=== PATIENT | male | born 1985 | race African-American/Black ===

== ENCOUNTER 2024-05-04 11:13 | Emergency (ER) | payer OTHER, SELFPAY ==
--- NOTE | 2024-05-04 | ECG_ITS ---
Test Reason : CHEST PAIN Blood Pressure : / mmHG Vent. Rate : 063 BPM Atrial Rate : 063 BPM P-R Int : 160 ms QRS Dur : 106 ms QT Int : 426 ms P-R-T Axes : 029 018 -05 degrees QTc Int : 435 ms Normal sinus rhythm Minimal voltage criteria for LVH, may be normal variant ( R in aVL ) T wave abnormality, consider inferior ischemia Abnormal ECG No previous ECGs available Referred By: Pam Whitney Electronically Signed By:DINH GARCÍA
--- NOTE | ~2024-05-04 | XR_ITS ---
EXAMINATION: XR CHEST CLINICAL INFORMATION: Cough. COMPARISON: None available. TECHNIQUE: 2 views of the chest were obtained. FINDINGS: The heart is normal in size. Both lungs are clear. No pleural effusion. No pneumothorax. No acute osseous abnormality. XR/XR chest 2V IMPRESSION: No acute cardiopulmonary disease. Electronically signed by: Daniel Singletary DO 05/04/2024 02:44 PM EDT
[2024-05-04 11:29] VITALS: BP 161/89; PULSE 65; RESP 18; TEMP 36.2; O2SAT 97; BMI 37.0
[2024-05-04 13:16] LABS: IDNOW Serial# 08D9AD1C; Strep A Nucleic Acid Negative (Negative)
[2024-05-04 13:17] LABS: Influenza A PCR NEGATIVE (Negative); Influenza B PCR NEGATIVE (Negative); Resp Syncy Virus RNA Qual PCR NEGATIVE (Negative); SARS COV2 PCR INHOUSE NEGATIVE (Negative)
[2024-05-04 14:49] VITALS: BP 142/90; PULSE 51; RESP 16; TEMP 36.4; O2SAT 97
--- NOTE | 2024-05-04 15:36 | ED.URI ---
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 Patient reports that his partner became ill with similar symptoms. He denies any known fevers. He endorses headache and congestion. He has been taking [id number] cold medications without any relief. He does report chest pain which only occurs with cough. Denies any shortness for breath. He has been using his inhaler at home which has provided him with some relief. No other complaints or concerns at this time. MD elicited complaint: cough, sore throat and nasal congestion Onset (ago): day(s) Able to tolerate fluids by mouth: Yes Exacerbating factors: nothing Relieving factors: nothing Context: sick contacts Associated symptoms: chills, headache, rhinorrhea, nasal congestion and sore throat Related Data Previous Rx's ?Medication ?Instructions ?Recorded azithromycin 250 mg tablet See Rx Instructions PO .COMPLEX #6 05/04/24 tabs benzonatate 100 mg capsule 100 mg PO TID PRN cough #14 caps 05/04/24 Allergies Allergy/AdvReac Type Severity Reaction Status Date / Time No Known Allergies Allergy Verified 05/04/24 11:30 Review of Systems Review of Systems: Yes all other systems are reviewed and are negative Constitutional: Constitutional: Reports as per [facility] Past Medical History Attestation statement: The following information was validated with the patient. Social History Social History Advance Directives: No Advance Directives Information Provided: Yes Do you have a plan to hurt others: No Plan Physical Exam Vital Signs: Vital Signs: Last Vital Signs Temp 97.5 F 05/04/24 14:49 Pulse 51 05/04/24 14:49 Resp 16 05/04/24 14:49 BP 142/90 H 05/04/24 14:49 Pulse Ox 97 05/04/24 14:49 O2 Del Method Room Air 05/04/24 14:49 BMI result Body Mass Index 37.0 Const: General: cooperative, comfortable and no acute distress Orientation/consciousness: patient oriented x3 Limitations: no limitations HEENT: Other: Posterior oropharynx is erythematous, no tonsillar hypertrophy or exudates. Uvula is midline. No trismus, drooling or dysphonia. Head: Yes normal to inspection, Yes normocephalic and Yes atraumatic Ears: hearing grossly normal bilaterally General nose exam: Normal external nose present Face and sinus: Yes normal facial exam Eyes: General: appearance normal, both eyes and all related structures Eyelids: Yes eyelids normal Conjunctivae: conjunctivae normal Sclerae: sclerae normal Pupils: Equal, round and reactive pupils present EOM: EOMs intact bilaterally Neck: Neck: Yes normal visual inspection, Yes full ROM and Yes no lymphadenopathy Lymphatic: no lymphadenopathy noted Chest: Chest palpation & inspection: normal inspection of the chest Resp: Effort & Inspection: normal respiratory effort and able to speak in complete sentences Auscultation: clear to auscultation bilaterally, no crackles, no rales, no rhonchi and no wheezes Cardio: Rate: regular rate Rhythm: regular rhythm Heart sounds: S1 normal heart sound present and S2 normal heart sound present GI: Inspection: Yes normal to inspection Skin: General skin exam: no rashes or lesions noted Trauma: no lacerations or abrasions Wounds: no wounds Neuro: General: patient oriented x3 and moves all extremities Cranial nerves: Yes Equal, round and reactive pupils present Extrem: General: Yes normal to inspection Right upper extremity: normal to inspection Left upper extremity: normal to inspection Right lower extremity: normal to inspection Left lower extremity: normal to inspection Medical Decision Making Medical Decision Making MDM Narrative: This is a 38-year-old male who presents emergency department with complaints of cough, congestion, headaches for the last week and a half. On arrival, patient's blood pressure mildly elevated at 160 1/89, all other vital signs within normal limits. He is nontoxic appearing, speaking full sentences under no acute distress. Lungs are clear to auscultation bilaterally. Oropharynx is erythematous, no tonsillar hypertrophy or exudates. Differential diagnoses include acute viral URI, tonsillitis, [employer], pneumonia. Patient reports chest pain which only occurs with a cough. He denies any active chest pain. Viral swabs were obtained, are negative. Strep swab negative. Chest x-ray unremarkable. 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 EKG normal sinus rhythm no evidence of ST elevation. Discharged on azithromycin and Tessalon. Given strict return precautions. He understands and agrees with plan. Patient stable for discharge. Differential Diagnosis Differential Diagnoses: The differential diagnosis associated with the presentation includes See above Lab Data MDM Lab Attestation statement: I reviewed the patient's lab results. Viral swabs Labs: Lab Results 05/04/24 05/04/24 Range/Units 12:20 13:00 Influenza Type A (PCR) NEGATIVE (Negative) Influenza Type B (PCR) NEGATIVE (Negative) RSV RNA Qual (PCR) NEGATIVE (Negative) SARS-CoV-2 RNA (RT-PCR) NEGATIVE (Negative) S. pyogenes GrpA SHANTE Negative (Negative) Independent Interpretation I performed an independent interpretation of an: EKG Interpretation: Normal sinus rhythm at a ventricular rate of 63 beats per minute, no ST elevation, no previous EKG for comparison Radiology Impression Discussion of test interpretation with radiology: I have reviewed the radiologist's reading. Radiologist Impression: EXAMINATION: XR CHEST CLINICAL INFORMATION: Cough. COMPARISON: None available. TECHNIQUE: 2 views of the chest were obtained. FINDINGS: The heart is normal in size. Both lungs are clear. No pleural effusion. No pneumothorax. No acute osseous abnormality. XR/XR chest 2V IMPRESSION: No acute cardiopulmonary disease. Electronically signed by: Daniel Singletary DO 05/04/2024 02:44 PM EDT Dictated By: Daniel Singletary Jr, DO Signed By: <Electronically signed b Discharge Plan Discharge Clinical Impression: Upper respiratory infection Patient Disposition: Home, Self-Care Instructions: Upper Respiratory Infection (ED) Additional Instructions: You were seen in the emergency department due to cold-like symptoms. You tested negative for COVID, flu, RSV. Please drink plenty of fluids get plenty of rest. Alternate between broken and or Tylenol as needed for pain. Take Tessalon as needed for cough. You likely have a virus that is causing you to have the symptoms however I am treating you with an antibiotic given the duration of your symptoms. Please finish the entire course even if your symptoms improve. If any new or worsening symptoms occur including but not limited to chest pain or shortness of breath, please return for re-evaluation. Prescriptions: New benzonatate 100 mg capsule 100 mg PO TID PRN (Reason: cough) Qty: 14 0RF azithromycin 250 mg tablet See Rx Instructions PO .COMPLEX Qty: 6 0RF Rx Instructions: For 250 mg dose pack: take 500 mg today (day 1), then 250 mg for 4 days (days 2-5) Print Language: Algerian
[2024-05-04 16:04] VITALS: BP 142/90; PULSE 51; RESP 16; TEMP 36.4; O2SAT 97
== END 2024-05-04 16:05 | disposition home or self-care (01) ==
PROVIDERS: Physician Assistant Medical; Emergency Provider Student in an Organized Health Care Education/Training Program
DX: J06.9 Acute upper respiratory infection, unspecified (principal); J02.9 Acute pharyngitis, unspecified; R07.89 Other chest pain; Z03.818 Encounter for observation for suspected exposure to other biological agents ruled out
CPT/HCPCS: 0241U; 71046; 87651; 93005; 99283; 99284